=== PATIENT | female | born 1955 | race Caucasian/White ===

== ENCOUNTER 2023-06-22 12:56 | Outpatient (RCR) | payer MEDICARE, SELFPAY | END 2023-06-22 23:59 | disposition home or self-care (01) | LOC: RPT 12:56 | PROVIDERS: ATTENDING PHYSICIAN Internal Medicine Gastroenterology; PRIMARYCARE PHYSICIAN Family Medicine | DX: R15.9 Full incontinence of feces (principal); M62.89 Other specified disorders of muscle; N39.41 Urge incontinence; N39.3 Stress incontinence (female) (male); M62.81 Muscle weakness (generalized); R27.8 Other lack of coordination | CPT/HCPCS: 97014; 97110; 97112; 97140; 97530 ==

== ENCOUNTER 2023-07-13 07:52 | Outpatient (RCR) | payer MEDICARE, SELFPAY | END 2023-07-13 23:59 | disposition home or self-care (01) | LOC: RPT 07:52 | PROVIDERS: ATTENDING PHYSICIAN Internal Medicine Gastroenterology; PRIMARYCARE PHYSICIAN Family Medicine | DX: R15.9 Full incontinence of feces (principal); M62.89 Other specified disorders of muscle; N39.41 Urge incontinence; N39.3 Stress incontinence (female) (male); Z73.6 Limitation of activities due to disability; M62.81 Muscle weakness (generalized); R27.8 Other lack of coordination | CPT/HCPCS: 97014; 97112; 97140; 97530 ==

== ENCOUNTER → 2023-07-28 12:03 | Outpatient (REF) | payer MEDICARE, SELFPAY | LOC: WDC 12:03 | PROVIDERS: ATTENDING PHYSICIAN Family Medicine | DX: Z12.31 Encounter for screening mammogram for malignant neoplasm of breast (principal) | CPT/HCPCS: 77063; 77067 ==

== ENCOUNTER → 2023-08-13 07:47 | Outpatient (REF) | payer MEDICARE, SELFPAY | LOC: RAD 07:47 | PROVIDERS: ATTENDING PHYSICIAN Family Medicine | DX: M85.89 Other specified disorders of bone density and structure, multiple sites (principal) | CPT/HCPCS: 77080 ==

== ENCOUNTER 2023-08-25 10:00 | Outpatient (RCR) | payer MEDICARE, SELFPAY | END 2023-08-25 23:59 | disposition home or self-care (01) | LOC: RPT 10:00 | PROVIDERS: ATTENDING PHYSICIAN Internal Medicine Gastroenterology; PRIMARYCARE PHYSICIAN Family Medicine | DX: R15.9 Full incontinence of feces (principal); M62.89 Other specified disorders of muscle; N39.41 Urge incontinence; N39.3 Stress incontinence (female) (male); Z73.6 Limitation of activities due to disability; M62.81 Muscle weakness (generalized); R27.8 Other lack of coordination | CPT/HCPCS: 97014; 97112; 97530 ==

== ENCOUNTER 2023-09-15 09:57 | Outpatient (RCR) | payer MEDICARE, SELFPAY | END 2023-09-15 23:59 | disposition home or self-care (01) | LOC: RPT 09:57 | PROVIDERS: ATTENDING PHYSICIAN Internal Medicine Gastroenterology; PRIMARYCARE PHYSICIAN Family Medicine | DX: R15.9 Full incontinence of feces (principal); M62.89 Other specified disorders of muscle; N39.41 Urge incontinence; N39.3 Stress incontinence (female) (male); Z73.6 Limitation of activities due to disability; M62.81 Muscle weakness (generalized); R27.8 Other lack of coordination | CPT/HCPCS: 97112; 97530 ==

== ENCOUNTER 2023-09-23 17:38 | Inpatient (IN) | payer MEDICARE, SELFPAY ==
[2023-09-23 12:01] VITALS: BP 122/78
[2023-09-23 12:30] VITALS: BP 141/116
[2023-09-23 12:30] LABS: % Basophils 0.1 % (0-2); % Immature Granulocytes 0.4 % (0-0.5); % Lymphocytes 5.1 % (20.5-51.1); % Monocytes 9.5 % (1.7-9.3); % Neutrophils 84.9 % (42.2-75.2); Absolute Immature Granulocytes 0.1 10^3/uL (0-0.05); Absolute Lymphocytes 0.8 10^3/uL (1.2-3.4); Absolute Monocytes 1.5 10^3/uL (0.1-0.6); Hematocrit 38.7 % (37.0-47.0); Hemoglobin 13.2 g/dL (12.0-16.0); Mean Corp Hgb Conc. 34.1 g/dL (33.0-37.0); Mean Corpuscular Hgb 28.3 pg (27.0-31.0); Mean Platelet Volume 9.5 fL (7.4-10.4); Nucleated Red Blood Cells % 0 %; Platelet Count 260 10^3/uL (130-400); Red Blood Cell Count 4.66 10^6/uL (4.20-5.40); Red Cell Dist. Width 13.2 % (11.5-14.5); White Blood Cell Count 15.4 10^3/uL (4.8-10.8)
[2023-09-23 12:45] LABS: ALT (SGPT) 17 U/L (0-35); AST (SGOT) 25 U/L (14-36); Albumin 3.7 g/dl (3.5-5.0); Alkaline Phosphatase 89 U/L (38-126); Blood Urea Nitrogen 12 mg/dl (7-17); Calcium 9.8 mg/dl (8.4-10.2); Carbon Dioxide 21 mmol/L (22-30); Chloride 101 mmol/L (98-107); Glucose 139 mg/dl (70-99); Lipase 57 U/L (23-300); Potassium 3.5 mmol/L (3.5-5.1); Sodium 129 mmol/L (135-145); Total Bilirubin 0.8 mg/dl (0.2-1.3); Total Protein 6.4 g/dl (6.3-8.2); eGFR > 60.00
[2023-09-23 13:00] VITALS: BP 126/66
[2023-09-23] MEDS: TYLENOL 650 MG PO ×2 (13:01→20:16)
[2023-09-23 13:09] LABS: COVID-19 Antigen Negative (Negative)
[2023-09-23] MEDS: NSS 1000 IV ×2 (14:01→20:16)
[2023-09-23 14:30] LABS: Urine Albumin 2+ (Neg - Trace); Urine Bilirubin Negative (Negative); Urine Character Slightly Cloudy (Clear); Urine Color Yellow; Urine Glucose Negative (Negative); Urine Ketone 2+ (Negative); Urine Leukocyte 2+ (Negative); Urine Nitrite Negative (Negative); Urine Occult Blood 1+ (Negative); Urine Urobilinogen Negative (Neg - 1+)
[2023-09-23 14:43] LABS: Urine Bacteria Many (Negative)
[2023-09-23 14:44] LABS: Urine Red Blood Cell 0-2 /HPF (0-2); Urine White Cell 30-40 /HPF (0-5)
--- NOTE | 2023-09-23 15:37 | ED.GENMED ---
History of Present Illness
General
Chief Complaint: Fever
Source: patient
Exam Limitations: none
Time Seen by Provider: 09/23/23 12:16
Nursing documentation reviewed up to this point in time: agreed with
Travel History
Have you had any contact with someone who has COVID-19?: No
Do you have any symptoms of coronavirus? Fever > 100 degrees, chills, cough, shortness of breath, sore throat, loss of taste or smell, muscle aches, or headache?: No
History of Present Illness
History of Present Illness:
Six 7-year-old female presents to the emergency department complaining of fever chills nausea vomiting diarrhea.
Past History
Past History
ED Past Medical History: GERD
ED Past Surgical History: None
Social History
Tobacco: Former smoker
Alcohol: None
Review of Systems
Review of Systems
Allergies reviewed?: Yes
All Other Systems: Not applicable
Constitutional: Reports fever and chills
EENT: Reports no symptoms
Respiratory: Reports no symptoms
Cardiac: Reports no symptoms
ABD/GI: Reports no symptoms
: Reports difficulty voiding and dark urine
Musculoskeletal: Reports no symptoms
Skin: Reports no symptoms
Neurological: Reports no symptoms
Endocrine: Reports no symptoms
Hematologic/Lymphatic: Reports no symptoms
Psychiatric: Reports no symptoms
Phy Exam
Physical Exam
Physical Exam:
Physical Exam
General: Fever 100.5
Neck: supple. no meningeal signs. normal posterior pharynx
Heart: s1/s2 tachycardia, no murmur. equal radial
pulses.
HEENT: Pupils equal round reactive to light, EOMI
Lungs: no acute respiratory distress. clear bilaterally
Abdomen: normal bowel sounds. not tender. no CVAT
Neuro: alert and oriented. no focal neurological deficits cranial nerves II through XII intact
Skin: no rash
Psychiatric: well kept. interactive and cooperative
Extremities: no edema. no calf tenderness. negative homans. good distal pulses
Course
Orders/Labs/Results
Orders:
Orders
09/23/23 12:18
IV Insert/Care/Rem.- Treatment PRN
09/23/23 12:19
Complete Blood Count/With Diff Urgent
Comprehensive Metabolic Panel Urgent
Lipase Urgent
09/23/23 12:47
COVID-19 Antigen Urgent
Source: Nasal Swab
INF RAPID [Influenza A+B Rapid Molecular] Urgent
FANY Source: Nasal Swab
Specimen Description:
Acetaminophen [Tylenol] 650 mg PO NOW STA
09/23/23 13:53
0.9% Sodium Chloride 1000 ml [Nss] 1,000 ml IV BOLUS
09/23/23 14:17
Urinalysis Reflex To Culture Urgent
Date Specimen was Collected: 09/23/23
Time Specimen was Collected: 12:18
Urine Microscopic Reflex Cult Urgent
Urine Culture Urgent
FANY Source: U
Specimen Description:
Date Specimen was Collected: 09/23/23
Time Specimen was Collected: 12:18
09/23/23 15:35
Aztreonam [Azactam] 2,000 mg IV NOW STA
Abnormal Lab Results
09/23/23 09/23/23
12:19 14:17
WBC 15.4 H 10^3/uL
(4.8-10.8)
Abs Immat Gran (auto) 0.1 H 10^3/uL
(0-0.05)
Absolute Neuts (auto) 13.0 H 10^3/uL
(1.4-6.5)
Absolute Lymphs (auto) 0.8 L 10^3/uL
(1.2-3.4)
Absolute Monos (auto) 1.5 H 10^3/uL
(0.1-0.6)
Neutrophils % 84.9 H %
(42.2-75.2)
Lymphocytes % 5.1 L %
(20.5-51.1)
Monocytes % 9.5 H %
(1.7-9.3)
Sodium 129 L mmol/L
(135-145)
Carbon Dioxide 21 L mmol/L
(22-30)
Glucose 139 H mg/dl
(70-99)
Urine Ketones 2+ A
(Negative)
Ur Occult Blood Reflex 1+ A
(Negative)
Leukocyte Esterase Rfl 2+ A
(Negative)
Urine WBC (Reflex) 30-40 A /HPF
(0-5)
Urine Bacteria (Reflex) Many A
(Negative)
Urine Albumin (Reflex) 2+ A
(Neg - Trace)
09/23/23 12:19
09/23/23 12:19
Vital Signs
Initial and Last Documented VS:
Initial Vital Signs
Temp Pulse Resp BP Pulse Ox
100.5 F H 110 18 122/78 98
09/23/23 12:01 09/23/23 12:01 09/23/23 12:01 09/23/23 12:01 09/23/23 12:01
Last Documented Vital Signs
Temp Pulse Resp BP Pulse Ox
100.5 F H 91 32 126/66 91
09/23/23 12:01 09/23/23 13:45 09/23/23 13:45 09/23/23 13:00 09/23/23 13:45
MDM/Problems Addressed
Differential Diagnosis Includes:
sepsis, UTI
MDM/Problems Addressed:
67-year-old female with UTI, fever, hyponatremia. Penicillin allergy.
Chronic conditions affecting care: HTN
Acute Exacerbation and/or Progression of Chronic Illness: HTN
*Pulse Oximetry
Patient hypoxic: no
*EKG
Interpreted by ED Provider?: NA
*Content Development Manager Interpretation
Rate: Content Development Manager- N/A
*Critical Care Note
Total Time (30-74mins, 75-104mins- exclusive of procedures): Not Applicable
Patient Management
Social determinants of health affecting care: Living situation
Discussion with other providers: Hospitalist
Escalation/DeEscalation of care consider admission/obs:
admit indicated
ED Attending Note
-
Portions of this chart may have been created with voice recognition software.� Occasional wrong word or��sound alike� substitutions may have occurred due to the inherent limitations of voice recognition software.
Discharge Plan
Departure
Patient Disposition: Admit
Date of Disposition: 09/23/23
Time of Disposition: 15:34
Admit to: Telemetry
Presentation/result/management discussed w/ accepting MD/DO: Hospitalist
Patient with high blood pressure during this ER visit?: Yes
Condition: Fair
Discharge Problem:
UTI (urinary tract infection), Fever
Prescriptions:
No Action
doxycycline hyclate 100 MG capsule
100 mg PO Q12 Qty: 14 0RF
prednisone 50 MG tablet
50 mg PO DAILY Qty: 5 0RF
Referrals:
Roscoe Veloz MD [Family Provider] -
Interventions
Interventions:
*Risk Screen - Suicide Last Done: 09/23/23 12:01
*General Assessment Last Done: 09/23/23 12:01
*Neglect/Abuse Screening Last Done: 09/23/23 12:01
*ED COVID-19 Vaccine History Last Done: 09/23/23 12:01
ED- Neurological Assessment Last Done: 09/23/23 12:40
ED-Skin Assessment Last Done: 09/23/23 12:40
Discharge Date and Time
Print Language: ARGENTINE
[2023-09-23] MEDS: AZACTAM 2000 MG IV (16:13)
--- NOTE | 2023-09-23 17:07 | HPS.HSE ---
Family Physician
-
Family Physician: Roscoe Veloz
Chief Complaint
-
fever, vomiting, diarrhea
History of Present Illness
67-year-old female past medical history of hypertension, GERD, Gill's esophagus, questionable celiac disease, hyperlipidemia presenting with fevers and chills for the past 4 days. He has been having daily vomiting and watery diarrhea episodes.
No blood in the stool. Decreased p.o. intake. No abdominal pain, urinary frequency or burning. No cough or sore throat or runny nose. No sick contacts.
She drinks a glass of wine every night. Denies smoking.
Medical History
Past Medical History
Past Medical History: Reports Other (hypertension, GERD, Gill's esophagus, questionable celiac disease, hyperlipidemia )
Past Surgical History: Reports None
Social History
Tobacco: Non-smoker
Alcohol: Daily
Drug: None
Family History
Family History: Not pertinent
Allergies / Home Medications
Allergies reflects when Allergies were last updated in [facility].
Home Medications with original date entered in [facility]
Allergy/Medication List:
Allergies
Allergy/AdvReac Type Severity Reaction Status Date / Time
aspirin Allergy Hives Verified 09/23/23 12:03
[From Aspirin Regimen
Dash/Calcium]
calcium carbonate Allergy Hives Verified 09/23/23 12:03
[From Aspirin Regimen
Dash/Calcium]
Penicillins Allergy Hives Verified 09/23/23 12:03
Sulfa (Sulfonamide Allergy Hives Verified 09/23/23 12:03
Antibiotics)
[Sulfa(Sulfonamide
Antibiotics)]
Home Medications
cholecalciferol (vitamin D3) 25 mcg (1,000 unit) tablet (Vitamin D3) 25 mcg PO DAILY 09/23/23
lisinopril 10 mg tablet 10 mg PO DAILY 09/23/23
loratadine 10 mg tablet (Claritin) 10 mg PO DAILY 09/23/23
omeprazole 40 mg capsule,delayed release 40 mg PO DAILY 09/23/23
vitamin E 268 mg (400 unit) capsule 268 mg PO DAILY 09/23/23
Review of Systems
-
History Source: Patient
A 12 point ROS was completed and negative except as noted: Yes
Constitutional: Reports No Symptoms
EENT: Reports No Symptoms
Respiratory: Reports No Symptoms
Cardiac: Reports No Symptoms
Abdomen/GI: Reports See HPI
: Reports No Symptoms
Musculoskeletal: Reports No Symptoms
Skin: Reports No Symptoms
Neurological: Reports No Symptoms
Endocrine: Reports No Symptoms
Hematologic/Lymphatic: Reports No Symptoms
Psych: Reports No Symptoms
Physical Exam
Vital Signs
Vital Signs
Temp Pulse Resp BP Pulse Ox
100.5 F H 91 32 126/66 91
09/23/23 12:01 09/23/23 13:45 09/23/23 13:45 09/23/23 13:00 09/23/23 13:45
Physical Exam
General: Well Developed, Well Nourished and No Apparent Distress
HEENT: NormoCephalic, Moist mucous membranes and Atraumatic
Respiratory: Clear
Cardiac: S1/S2 and Regular Rhythm; No Murmur or Rub
GI: Soft, Non Tender, Non Distended and Normal Bowel Sounds; No Organomegaly
Rectal: Deferred by Provider
Musculoskeletal: No Clubbing, No Cyanosis and No Edema
Skin: No Rash
Neuro: Nonfocal/grossly intact
Laboratory Results
-
09/23/23 12:19
09/23/23 12:19
Laboratory Results
Total Bilirubin 0.8 mg/dl (0.2-1.3) 09/23/23 12:19
AST 25 U/L (14-36) 09/23/23 12:19
ALT 17 U/L (0-35) 09/23/23 12:19
Alkaline Phosphatase 89 U/L (38-126) 09/23/23 12:19
Lipase 57 U/L (23-300) 09/23/23 12:19
Data Reviewed
-
Lab Data: Labs Reviewed by me
Old Records: Reviewed
Impression/Plan
-
IMPRESSION:
PLAN:
# Sepsis (fever, leukocytosis, tachycardia, tachypnea) secondary to gastroenteritis/colitis/possible UTI
-Urinalysis shows 30-40 WBC, slightly cloudy urine, negative nitrates, +2 leukocyte esterase
-N.p.o.
-IV fluids
-Check urine culture/blood cultures
-Check stool culture, norovirus, C. difficile
-As needed Imodium after checking stool
-Aztreonam given, continue Levaquin/Flagyl
GERD
-Continue omeprazole
Gill's esophagus
Questionable celiac disease
Hyperlipidemia
Essential hypertension
-Continue lisinopril
Full code
DVT prophylaxis heparin
N.p.o.
[2023-09-23 18:36] VITALS: BP 146/79
--- NOTE | 2023-09-23 19:50 | PTCARENOTE ---
received pt from ED approx 1835 to 3W room 335. Assessment complete, pt oriented to room, call schneider within reach, pt febrile at 102.5. Flushed face and upper chest. Resting comfortably, no complaints at this time.
[2023-09-23 20:11] VITALS: BMI 26.9
[2023-09-23] MEDS: HEPARIN 5000 UNITS SC (20:16)
[2023-09-23] MEDS: FLAGYL 500 MG 100 IV (20:16)
[2023-09-23] MEDS: FLUSH (NSS) 2 FLUSH IV (20:18)
[2023-09-23] MEDS: LEVAQUIN 150 IV (22:03)
[2023-09-23 23:46] VITALS: BP 110/63
[2023-09-24] MEDS: FLAGYL 500 MG 100 IV ×2 (03:41→12:35)
[2023-09-24] MEDS: TYLENOL 650 MG PO ×3 (03:42→21:00)
[2023-09-24] MEDS: NSS 1000 IV ×3 (05:14→21:26)
[2023-09-24 05:49] LABS: % Basophils 0.1 % (0-2); % Immature Granulocytes 0.6 % (0-0.5); % Lymphocytes 3.8 % (20.5-51.1); % Monocytes 10.9 % (1.7-9.3); % Neutrophils 84.6 % (42.2-75.2); Absolute Immature Granulocytes 0.1 10^3/uL (0-0.05); Absolute Lymphocytes 0.5 10^3/uL (1.2-3.4); Absolute Monocytes 1.4 10^3/uL (0.1-0.6); Absolute Neutrophils 10.6 10^3/uL (1.4-6.5); Hemoglobin 11.1 g/dL (12.0-16.0); Mean Corp Hgb Conc. 33.6 g/dL (33.0-37.0); Mean Corpuscular Hgb 28.1 pg (27.0-31.0); Mean Corpuscular Volume 83.5 fL (81.0-99.0); Mean Platelet Volume 9.7 fL (7.4-10.4); Nucleated Red Blood Cells % 0 %; Platelet Count 194 10^3/uL (130-400); Red Blood Cell Count 3.95 10^6/uL (4.20-5.40); Red Cell Dist. Width 13.2 % (11.5-14.5); White Blood Cell Count 12.5 10^3/uL (4.8-10.8)
[2023-09-24 06:14] LABS: ALT (SGPT) 16 U/L (0-35); AST (SGOT) 26 U/L (14-36); Albumin 2.7 g/dl (3.5-5.0); Alkaline Phosphatase 72 U/L (38-126); Blood Urea Nitrogen 12 mg/dl (7-17); Calcium 8.9 mg/dl (8.4-10.2); Carbon Dioxide 19 mmol/L (22-30); Chloride 107 mmol/L (98-107); Estimated Creatinine Clearance 62 ml/min; Glucose 111 mg/dl (70-99); Potassium 3.3 mmol/L (3.5-5.1); Sodium 132 mmol/L (135-145); Total Bilirubin 0.6 mg/dl (0.2-1.3); Total Protein 5.2 g/dl (6.3-8.2); eGFR > 60.00
[2023-09-24 07:11] VITALS: BP 114/67
[2023-09-24] MEDS: VITAMIN D3 (cholecalciferol) 25 MCG PO (08:27)
[2023-09-24] MEDS: PROTONIX 40 MG PO (08:27)
[2023-09-24] MEDS: ZESTRIL 10 MG PO (08:27)
[2023-09-24] MEDS: CLARITIN 10 MG PO (08:27)
[2023-09-24] MEDS: VITAMIN E 400 UNITS PO (08:27)
[2023-09-24] MEDS: HEPARIN 5000 UNITS SC ×2 (08:28→21:01)
--- NOTE | 2023-09-24 08:53 | W.PN.HOSP.TC ---
Today's Communication/Plan
-
IV antibiotics. Follow-up cultures. ID consult
Assessment / Plan
Assessment / Plan
Physical exam:
General: Well Developed, Well Nourished and No Apparent Distress
HEENT: Normocephalic, Atraumatic and Moist Mucous Membranes
Respiratory: Clear to Auscultation; Negative Wheezes, Rales or Rhonchi
Cardiac: Regular Rhythm and S1/S2
GI: Soft, Nontender and Nondistended
Musculoskeletal: No Clubbing, No Cyanosis and No Edema
Neuro: Awake, Alert and Oriented
Psych: Calm
A/P:
# Sepsis (fever, leukocytosis, tachycardia, tachypnea) secondary to likely UTI with bacteremia:
-Urinalysis shows 30-40 WBC, slightly cloudy urine, negative nitrates, +2 leukocyte esterase
-Continue IV antibiotics Levaquin but stop Flagyl
-ID consult
-Blood cultures positive, waiting for identification. Repeat cultures today.
-WBC 15.4-->12.5
GERD
-Continue omeprazole
Gill's esophagus
Questionable celiac disease
Hyperlipidemia
Essential hypertension
-Continue lisinopril
Full code
DVT prophylaxis heparin
Total time spent on today's encounter was 52 minutes which included time spent in counseling the patient/family regarding diagnosis and treatment plan as listed above, goals of care, and symptom management. Case was discussed with nursing staff,
specialists, and care coordinators/case management. All labs and imaging personally reviewed by me. Remainder the time spent in detailed review of previous records, lab data, imaging, and other medical provider documentation.
Anticipated Discharge: 24 - 48 hours
Subjective/Interval History
-
Date of Service: September 24, 2023
Patient still complaining of chills. She had some diarrhea but this is somewhat chronic for her.
Objective Data
-
Labs:
Laboratory Results
09/24/23
05:23
WBC 12.5 H
Hgb 11.1 L
Hct 33.0 L
Plt Count 194 D
Sodium 132 L
Potassium 3.3 L
Chloride 107
Carbon Dioxide 19 L
BUN 12
Creatinine 0.8
Glucose 111 H
Calcium 8.9
Total Bilirubin 0.6
AST 26
ALT 16
Alkaline Phosphatase 72
Vital Signs:
Vital Signs
Temp Pulse Resp BP Pulse Ox
98.5 F 80 17 114/67 95
09/24/23 07:11 09/24/23 08:27 09/24/23 07:11 09/24/23 08:27 09/24/23 07:11
I&O
09/23/23 09/24/23 09/25/23
06:59 06:59 06:59
Intake Total 2069
Balance 2069
Review of Systems
-
All other systems: Reviewed and negative
[2023-09-24] MEDS: KCL 40 MEQ PO ×2 (10:21→14:44)
--- NOTE | 2023-09-24 14:38 | CM ---
Addendum entered by Deepali Akhtar 09/24/23 14:47:
IMM explained and signed @ 1435
Original Note:
Met with patient at the bedside; initial assessment completed
IMM explained and signed
Pharmacy verified: [facility] ([facility]); [address] [place] [address]
Patient reported that she lives in a multi-level home with her ; 2 steps to enter; 10 steps between floors; powder room on the 1st floor; 2nd floor bathroom has tub with shower
PLOF: patient reported that prior to present illness, she was independent with ADLs, Ambulation and Stairs; drives. Reported she is feeling weak. PT evaluated; no skilled PT needed
DME: tub grab bar, shower chair
SNF/Rehab/Home Health utilization history: none
Transport: will provide transport home
Plan: discharge to home with assistance from if needed
[2023-09-24 15:02] VITALS: BP 131/73
--- NOTE | 2023-09-24 16:10 | CON.ID ---
Consultation
-
Date/Time Consultation Requested: 09/24/2023 1254
Date/Time Consultation Performed: 09/24/2023 1545
Requesting Provider: Dr. Rios
Performing Provider: Dr. Nobles
Reason for Consultation: Bacteremia
Chief Complaint / Past History
History of Present Illness
Zandra Enrique is a 67-year-old female being evaluated at the request of Dr. Rios in regards to bacteremia. History is obtained from chart review, along with patient interview.
Patient has a significant past medical history of GERD and hypertension presents to the hospital on 09/22 following the development of fevers and chills over the prior 4 days, along with several episodes of nausea, vomiting and diarrhea.
The patient reports that she has been feeling weak and exhausted at least for several weeks. Earlier in the week she reports she went for a walk with her sister and was extremely fatigued thereafter. Over the past week she has felt increasingly
tired. She called her PCP yesterday and he advised coming to the emergency room for further evaluation. She notes ongoing nausea over the past week and overall decreased appetite over the same time. She also admits to fevers and chills over the
past week. She admits to occasional cough but little sputum production.
She denies any significant dysuria or hematuria.
She reports recent travel in early October 2 [place], [place] and [place], where she did some desert hiking with her .
There are no other sick contacts. She has a dog as a pet.
Past History
Additional Past Medical History:
Gill's esophagus
GERD
HTN
Additional Past Surgical History:
Right ankle surgery
Allergy History:
aspirin [From Aspirin Regimen Dash/Calcium] Allergy (Verified 09/23/23 12:03)
Hives
calcium carbonate [From Aspirin Regimen Dash/Calcium] Allergy (Verified 09/23/23 12:03)
Hives
eggplant Allergy (Verified 09/23/23 18:41)
Hives
Penicillins Allergy (Verified 09/23/23 12:03)
Hives (Pt reports transient 'rash on dorsum of hands' after PCN. No body rash.
Sulfa (Sulfonamide Antibiotics) [Sulfa(Sulfonamide Antibiotics)] Allergy (Verified 09/23/23 12:03)
Hives
Medications Reviewed: Yes
Current Antibiotics:
Levaquin 703 mg IV every 24 hours
Social History
Tobacco: Non-Smoker
Alcohol: Daily (wine)
Drug: None
Personal:
Living: With Family
Employment: Retired
Family History
Family History: Not Pertinent
Review of Systems
Vital Signs
Temp Pulse Resp BP Pulse Ox
99.8 F 100 16 131/73 98
09/24/23 10:56 09/24/23 15:02 09/24/23 15:02 09/24/23 15:02 09/24/23 15:02
Physical Exam
Physical Exam
Constitutional: No Acute Distress, Well Developed, Comfortable and Non-toxic
Head: Normocephalic
Eyes: Pupils Equal, Pupils Round, No Conjunctival Hemorrhage and Sclera Anicteric
Oral: No Thrush and No Ulcers
Cardiovascular: S1/S2; Negative S3/S4 or Murmur
Pulmonary: Clear; Negative Wheezes, Rales or Rhonchi
Gastrointestinal: Soft, Non Tender, Non Distended, Normal Bowel Sounds, No Rebound and No Guarding
Extremities: Negative Edema, Cyanosis or Erythema
Skin: Warm and Dry; Negative Rash or Jaundice
Neurological: Awake and Alert
Lab / Diagnostic Study Results
09/24/23 05:23
09/24/23 05:23
Abs Immat Gran (auto) 0.1 10^3/uL (0-0.05) H 09/24/23 05:23
Absolute Neuts (auto) 10.6 10^3/uL (1.4-6.5) H 09/24/23 05:23
Absolute Lymphs (auto) 0.5 10^3/uL (1.2-3.4) L 09/24/23 05:23
Absolute Monos (auto) 1.4 10^3/uL (0.1-0.6) H 09/24/23 05:23
Absolute Basos (auto) 0.0 10^3/uL (0-0.2) 09/24/23 05:23
Immature Gran % 0.6 % (0-0.5) H 09/24/23 05:23
Neutrophils % 84.6 % (42.2-75.2) H 09/24/23 05:23
Lymphocytes % 3.8 % (20.5-51.1) L 09/24/23 05:23
Monocytes % 10.9 % (1.7-9.3) H 09/24/23 05:23
Eosinophils % 0.0 % (0-6) 09/24/23 05:23
Basophils % 0.1 % (0-2) 09/24/23 05:23
Ur Squamous Epith Cells 6-10 /LPF (Few) 09/23/23 14:17
Microbiology Results
Micro:
09/24/23 15:52 Blood Culture - Pending
Blood/Venous
09/24/23 11:23 C. difficile GDH Antigen & Toxins - Final
Feces/Stool Negative for toxigenic C.difficile
- Final
Negative for Norovirus GI and GII.
09/23/23 16:06 Blood Culture - Preliminary
Blood/Venous Positive culture in progress
Gram Stain - Final
09/23/23 14:17 Urine Culture - Final
Urine Lactobacillus species
09/24/23 11:23 Salmonella/Shigella Culture - Pending
Feces/Stool Campylobacter Culture - Pending
Shiga Toxin Test - Pending
09/23/23 16:06 Blood Culture - Pending
Blood/Venous
09/23/23 12:47 Influenza Types A & B (LYNDSAY) - Final
Nasal Swab Negative for Influenza A & B, NAAT
Negative results must be combined with clinical observations
and patient history.
Nucleic Acid Amplification test (NAAT)performed on the
[employer] platform.
Assessment / Plan
Fever / chills
Nausea / vomiting / Diarrhea
Leukocytosis
(+) BC's with GPC (1 of 4 bottles from admit)
Suspected UTI
PCN / Sulfa allergy
Gill's esophagus
GERD
HTN
Recommendations:
Given improvement in white count, continue with empiric Levaquin, although can transition to enteric route
Repeat blood cultures have been obtained.
Await further identification of currently positive blood cultures.
Follow WBC / temps.
[2023-09-24] MEDS: LEVAQUIN 750 MG PO (21:02)
[2023-09-24 23:25] VITALS: BP 108/61
[2023-09-25] MEDS: TORADOL 15 MG IV
[2023-09-25 07:00] VITALS: BP 142/84
[2023-09-25] MEDS: PROTONIX 40 MG PO (08:03)
[2023-09-25] MEDS: VITAMIN D3 (cholecalciferol) 25 MCG PO (08:03)
[2023-09-25] MEDS: VITAMIN E 400 UNITS PO (08:03)
[2023-09-25] MEDS: HEPARIN 5000 UNITS SC ×2 (08:04→21:18)
[2023-09-25] MEDS: CLARITIN 10 MG PO (08:04)
[2023-09-25] MEDS: ZESTRIL 10 MG PO (08:04)
--- NOTE | 2023-09-25 08:08 | W.PN.HOSP.TC ---
Today's Communication/Plan
-
Continue antibiotics.
Assessment / Plan
Assessment / Plan
Physical exam:
General: Well Developed, Well Nourished and No Apparent Distress
HEENT: Normocephalic, Atraumatic and Moist Mucous Membranes
Respiratory: Clear to Auscultation; Negative Wheezes, Rales or Rhonchi
Cardiac: Regular Rhythm and S1/S2
GI: Soft, Nontender and Nondistended
Musculoskeletal: No Clubbing, No Cyanosis and No Edema
Neuro: Awake, Alert and Oriented
Psych: Calm
A/P:
# Sepsis (fever, leukocytosis, tachycardia, tachypnea) secondary to likely UTI:
-Urinalysis shows 30-40 WBC, slightly cloudy urine, negative nitrates, +2 leukocyte esterase
-Continue IV antibiotics Levaquin--> decrease doses by ID today
-ID consult and follow-up appreciated
-Blood cultures positive but likely contaminant, waiting for identification. Repeat cultures yesterday pending but no growth so far.
-WBC 15.4-->12.5-->10.4
-Possible discharge tomorrow if cultures negative and ID okay
GERD
-Continue omeprazole
Gill's esophagus
Questionable celiac disease
Hyperlipidemia
Essential hypertension
-Continue lisinopril
Full code
DVT prophylaxis heparin
Anticipated Discharge: Within 24 hours
Subjective/Interval History
-
Date of Service: September 25, 2023
Patient overall feels better today. Patient had vomiting last evening and she thinks that she did not took advantage of her antibiotic pill due to the event. Afebrile
Objective Data
-
Labs:
Laboratory Results
09/25/23
07:55
WBC Pending
Hgb Pending
Hct Pending
Plt Count Pending
Sodium Pending
Potassium Pending
Chloride Pending
Carbon Dioxide Pending
BUN Pending
Creatinine Pending
Glucose Pending
Calcium Pending
Vital Signs:
Vital Signs
Temp Pulse Resp BP Pulse Ox
98.6 F 90 18 146/88 93
09/25/23 03:30 09/24/23 23:25 09/24/23 23:25 09/25/23 08:04 09/24/23 23:25
I&O
09/24/23 09/25/23 09/26/23
06:59 06:59 06:59
Intake Total 2069
Balance 2069
Review of Systems
-
All other systems: Reviewed and negative
[2023-09-25] MEDS: TYLENOL 650 MG PO ×3 (08:11→23:03)
[2023-09-25] MEDS: ZOFRAN 4 MG IV (08:11)
[2023-09-25 08:15] LABS: % Basophils 0.1 % (0-2); % Immature Granulocytes 0.5 % (0-0.5); % Lymphocytes 5.3 % (20.5-51.1); % Monocytes 9.4 % (1.7-9.3); % Neutrophils 84.7 % (42.2-75.2); Absolute Immature Granulocytes 0.1 10^3/uL (0-0.05); Absolute Lymphocytes 0.6 10^3/uL (1.2-3.4); Absolute Neutrophils 8.8 10^3/uL (1.4-6.5); Hematocrit 32.4 % (37.0-47.0); Hemoglobin 10.9 g/dL (12.0-16.0); Mean Corp Hgb Conc. 33.6 g/dL (33.0-37.0); Mean Corpuscular Hgb 28.1 pg (27.0-31.0); Mean Corpuscular Volume 83.5 fL (81.0-99.0); Mean Platelet Volume 9.8 fL (7.4-10.4); Nucleated Red Blood Cells % 0 %; Platelet Count 204 10^3/uL (130-400); Red Blood Cell Count 3.88 10^6/uL (4.20-5.40); Red Cell Dist. Width 13.7 % (11.5-14.5); White Blood Cell Count 10.4 10^3/uL (4.8-10.8)
[2023-09-25 09:00] LABS: Blood Urea Nitrogen 9 mg/dl (7-17); Calcium 9.3 mg/dl (8.4-10.2); Carbon Dioxide 20 mmol/L (22-30); Chloride 111 mmol/L (98-107); Estimated Creatinine Clearance 83 ml/min; Glucose 131 mg/dl (70-99); Potassium 3.9 mmol/L (3.5-5.1); Sodium 133 mmol/L (135-145); eGFR > 60.00
--- NOTE | 2023-09-25 10:38 | W.PN.ID1 ---
Date of Service
Date of Service: September 25, 2023
Today's Communication
Continue antibiotics. See below�
Assessment / Plan
Fever / chills
Nausea / vomiting / Diarrhea
Leukocytosis
(+) BC's with GPC (1 of 4 bottles from admit)
- suspect contaminat
Suspected UTI
PCN / Sulfa allergy
Gill's esophagus
GERD
HTN
Recommendations:
Following repeat blood cultures.
Await further identification of currently positive blood cultures.
Follow WBC / temps.
Patient reports that she vomited last evening following administration of Levaquin (within approximately 15 minutes of taking medication). Patient reports she saw a pill fragments in the vomitus.
Not clear if any was absorbed.
Will will change to 500 mg dosed now.
Chief Complaint
-: Fever and Leukocytosis
Subjective / Review of Systems
Review of Systems: No Fever and Nausea (with vomiting)
Vital Signs / Physical Exam
Vital Signs
Vital Signs
Temp Pulse Resp BP Pulse Ox
98.6 F 90 17 146/88 98
09/25/23 03:30 09/25/23 07:00 09/25/23 07:00 09/25/23 08:04 09/25/23 07:00
Physical Exam
Constitutional: Comfortable and Non-toxic
Eyes: Sclera Anicteric
Cardiovascular: S1/S2; Negative S3/S4
Pulmonary: Non Labored
Gastrointestinal: Soft and Non Distended
Neurological: Awake and Alert
Psychological: Calm
Objective Data
Lab Data
Lab Results
09/25/23 07:55
09/25/23 07:55
Estimated Creat Clear 83 ml/min 09/25/23 07:55
Total Bilirubin 0.6 mg/dl (0.2-1.3) 09/24/23 05:23
AST 26 U/L (14-36) 09/24/23 05:23
ALT 16 U/L (0-35) 09/24/23 05:23
Alkaline Phosphatase 72 U/L (38-126) 09/24/23 05:23
Most recent labs reviewed.
Micro Results:
09/24/23 11:23 Salmonella/Shigella Culture - Preliminary
Feces/Stool Culture in Progress
Campylobacter Culture - Preliminary
Culture in Progress
Shiga Toxin Test - Pending
09/23/23 16:06 Blood Culture - Preliminary
Blood/Venous No Growth in 24 hours- Final report to follow
09/24/23 15:52 Blood Culture - Pending
Blood/Venous
09/24/23 11:23 C. difficile GDH Antigen & Toxins - Final
Feces/Stool Negative for toxigenic C.difficile
- Final
Negative for Norovirus GI and GII.
09/23/23 16:06 Blood Culture - Preliminary
Blood/Venous Positive culture in progress
Gram Stain - Final
09/23/23 14:17 Urine Culture - Final
Urine Lactobacillus species
09/23/23 12:47 Influenza Types A & B (LYNDSAY) - Final
Nasal Swab Negative for Influenza A & B, NAAT
Negative results must be combined with clinical observations
and patient history.
Nucleic Acid Amplification test (NAAT)performed on the
[facility] platform.
[2023-09-25] MEDS: LEVAQUIN 500 MG PO (12:39)
[2023-09-25] MEDS: NSS 1000 IV (12:40)
[2023-09-25 23:05] VITALS: BP 144/80
[2023-09-26] MEDS: TORADOL 15 MG IV (00:34)
[2023-09-26 07:00] VITALS: BP 135/66
--- NOTE | 2023-09-26 08:24 | W.PN.HOSP.TC ---
Today's Communication/Plan
-
Continue antibiotics. Repeat blood cultures today. ID reeval.
Assessment / Plan
Assessment / Plan
Physical exam:
General: Acutely ill. Remains nontoxic appearance.
HEENT: Normocephalic, Atraumatic and Moist Mucous Membranes
Respiratory: Clear to Auscultation; Negative Wheezes, Rales or Rhonchi
Cardiac: Regular Rhythm and S1/S2
GI: Soft, Nontender and Nondistended
Musculoskeletal: No rash. No Clubbing, No Cyanosis and No Edema
Neuro: Awake, Alert and Oriented
Psych: Calm
A/P:
# Sepsis (fever, leukocytosis, tachycardia, tachypnea) initially suspected due to UTI but currently not so sure so I need to do further investigation if continues to have fever:
-Urinalysis shows 30-40 WBC, slightly cloudy urine, negative nitrates, +2 leukocyte esterase
-Continue IV antibiotics Levaquin--> decrease doses by ID yesterday
-Discussed with ID today on 09/25 and told him about the recurrence of fevers so he will look into that.
-Repeated blood cultures today on 09/25
-ID consult appreciated
-Blood cultures positive 09/22 but likely contaminant, waiting for identification. Repeat cultures 09/23 pending but no growth so far. Repeated cultures again today on 09/25
-WBC 15.4-->12.5-->10.4-->10.5
-Not ready for discharge yet since she still having fever.
GERD
-Continue omeprazole
Gill's esophagus
Questionable celiac disease
Hyperlipidemia
Essential hypertension
-Continue lisinopril
Full code
DVT prophylaxis heparin
Total time spent on today's encounter was 52 minutes which included time spent in counseling the patient/family regarding diagnosis and treatment plan as listed above, goals of care, and symptom management. Case was discussed with nursing staff,
specialists, and care coordinators/case management. All labs and imaging personally reviewed by me. Remainder the time spent in detailed review of previous records, lab data, imaging, and other medical provider documentation.
Anticipated Discharge: 24 - 48 hours
Subjective/Interval History
-
Date of Service: September 26, 2023
Patient continues to have fevers and early this morning Tmax was 103 Fahrenheit. She was still having some loose stools. Denies dysuria cough or rash. Denies chest pain or shortness of breath.
Objective Data
-
Vital Signs:
Vital Signs
Temp Pulse Resp BP Pulse Ox
98.5 F 103 18 144/80 95
09/26/23 02:11 09/25/23 23:05 09/25/23 23:05 09/25/23 23:05 09/25/23 23:05
I&O
09/25/23 09/26/23 09/27/23
06:59 06:59 06:59
Intake Total 1939 980 / 980
Balance 1939 980 / 980
Review of Systems
-
All other systems: Reviewed and negative
[2023-09-26 08:52] LABS: % Basophils 0.1 % (0-2); % Immature Granulocytes 0.8 % (0-0.5); % Lymphocytes 10.9 % (20.5-51.1); % Monocytes 6.3 % (1.7-9.3); % Neutrophils 81.9 % (42.2-75.2); Absolute Immature Granulocytes 0.1 10^3/uL (0-0.05); Absolute Lymphocytes 1.2 10^3/uL (1.2-3.4); Absolute Monocytes 0.7 10^3/uL (0.1-0.6); Absolute Neutrophils 8.6 10^3/uL (1.4-6.5); Hematocrit 35.8 % (37.0-47.0); Hemoglobin 12.3 g/dL (12.0-16.0); Mean Corp Hgb Conc. 34.4 g/dL (33.0-37.0); Mean Corpuscular Hgb 28.2 pg (27.0-31.0); Mean Corpuscular Volume 82.1 fL (81.0-99.0); Mean Platelet Volume 9.7 fL (7.4-10.4); Nucleated Red Blood Cells % 0 %; Platelet Count 278 10^3/uL (130-400); Red Blood Cell Count 4.36 10^6/uL (4.20-5.40); Red Cell Dist. Width 13.9 % (11.5-14.5); White Blood Cell Count 10.5 10^3/uL (4.8-10.8)
[2023-09-26 09:16] LABS: Blood Urea Nitrogen 11 mg/dl (7-17); Calcium 9.8 mg/dl (8.4-10.2); Carbon Dioxide 22 mmol/L (22-30); Chloride 110 mmol/L (98-107); Estimated Creatinine Clearance 71 ml/min; Glucose 105 mg/dl (70-99); Sodium 136 mmol/L (135-145); eGFR > 60.00
[2023-09-26 09:23] LABS: Potassium 3.9 mmol/L (3.5-5.1)
[2023-09-26 10:05] LABS: ALT (SGPT) 24 U/L (0-35); AST (SGOT) 24 U/L (14-36); Albumin 2.9 g/dl (3.5-5.0); Alkaline Phosphatase 86 U/L (38-126); Total Bilirubin 0.4 mg/dl (0.2-1.3); Total Protein 5.6 g/dl (6.3-8.2)
[2023-09-26] MEDS: PROTONIX 40 MG PO (10:21)
[2023-09-26] MEDS: LEVAQUIN 500 MG PO (10:21)
[2023-09-26] MEDS: ZESTRIL 10 MG PO (10:21)
[2023-09-26] MEDS: CLARITIN 10 MG PO (10:21)
[2023-09-26] MEDS: VITAMIN D3 (cholecalciferol) 25 MCG PO (10:21)
[2023-09-26] MEDS: VITAMIN E 400 UNITS PO (10:21)
[2023-09-26] MEDS: HEPARIN 5000 UNITS SC ×2 (10:22→20:18)
[2023-09-26 11:07] LABS: ALT (SGPT) 23 U/L (0-35); AST (SGOT) 27 U/L (14-36); Albumin 2.7 g/dl (3.5-5.0); Alkaline Phosphatase 82 U/L (38-126); Lipase 69 U/L (23-300); Total Bilirubin 0.3 mg/dl (0.2-1.3); Total Protein 5.2 g/dl (6.3-8.2)
[2023-09-26 12:02] LABS: Lipase 80 U/L (23-300)
[2023-09-26 12:43] LABS: Erythrocyte Sed Rate 54 mm/hour (0-20)
[2023-09-26 15:00] VITALS: BP 150/93
[2023-09-26 16:20] VITALS: BP 150/93
[2023-09-26] MEDS: TYLENOL 650 MG PO (17:41)
[2023-09-26 23:44] VITALS: BP 149/86
[2023-09-27 07:00] VITALS: BP 149/91
[2023-09-27 07:05] LABS: % Basophils 0.1 % (0-2); % Immature Granulocytes 0.8 % (0-0.5); % Lymphocytes 14.3 % (20.5-51.1); % Monocytes 8.8 % (1.7-9.3); Absolute Immature Granulocytes 0.1 10^3/uL (0-0.05); Absolute Lymphocytes 1.2 10^3/uL (1.2-3.4); Absolute Monocytes 0.7 10^3/uL (0.1-0.6); Absolute Neutrophils 6.3 10^3/uL (1.4-6.5); Hemoglobin 10.8 g/dL (12.0-16.0); Mean Corp Hgb Conc. 34.8 g/dL (33.0-37.0); Mean Corpuscular Hgb 28.3 pg (27.0-31.0); Mean Corpuscular Volume 81.4 fL (81.0-99.0); Mean Platelet Volume 9.8 fL (7.4-10.4); Nucleated Red Blood Cells % 0 %; Platelet Count 273 10^3/uL (130-400); Red Blood Cell Count 3.81 10^6/uL (4.20-5.40); Red Cell Dist. Width 13.8 % (11.5-14.5); White Blood Cell Count 8.3 10^3/uL (4.8-10.8)
[2023-09-27 07:34] LABS: Blood Urea Nitrogen 9 mg/dl (7-17); Calcium 9.1 mg/dl (8.4-10.2); Carbon Dioxide 23 mmol/L (22-30); Chloride 110 mmol/L (98-107); Estimated Creatinine Clearance 83 ml/min; Glucose 97 mg/dl (70-99); Potassium 3.4 mmol/L (3.5-5.1); Sodium 138 mmol/L (135-145); eGFR > 60.00
[2023-09-27] MEDS: VITAMIN E 400 UNITS PO (08:40)
[2023-09-27] MEDS: LEVAQUIN 500 MG PO (08:40)
[2023-09-27] MEDS: VITAMIN D3 (cholecalciferol) 25 MCG PO (08:40)
[2023-09-27] MEDS: ZESTRIL 10 MG PO (08:40)
[2023-09-27] MEDS: PROTONIX 40 MG PO (08:40)
[2023-09-27] MEDS: CLARITIN 10 MG PO (08:40)
[2023-09-27] MEDS: HEPARIN 5000 UNITS SC (08:41)
--- NOTE | 2023-09-27 11:15 | W.PN.HOSP.TC ---
Today's Communication/Plan
-
Await ID input
Assessment / Plan
Assessment / Plan
Gen-AAOx3, NAD
HEENT-NC, AT, anicteric, clear oral mm
Neck-supple
CV-reg, no M, +S1/S2
Lungs-clear B/L
Abd-soft, NT, ND
Ext-no edema
Musculoskeletal-no cyanosis, clubbing
Skin-warm and dry
Neuro-grossly non-focal
Psych-calm, cooperative
Sepsis due to acute gastroenteritis -sepsis resolved. Suspect initial positive blood culture was a contaminant. Repeat blood cultures negative. Leukocytosis resolved. Afebrile now. Stool studies negative for norovirus and C. difficile colitis,
stool culture negative.
Clinically doubt UTI as she has no symptoms despite pyuria. Urine culture shows greater than 100,000 lactobacillus species. Defer antibiotics to infectious disease.
GERD
-Continue omeprazole
Gill's esophagus
Questionable celiac disease
Hyperlipidemia
Essential hypertension
-Continue lisinopril
Full code
DVT prophylaxis heparin
Dispo - appears medically stable for discharge, will discuss with infectious disease.
Anticipated Discharge: Today
Subjective/Interval History
-
Date of Service: September 27, 2023
Patient seen and examined. Looks and feels much better today. No complaints. Ate a full breakfast. Denies further vomiting or diarrhea.
Objective Data
-
Labs:
Laboratory Results
09/27/23
06:27
WBC 8.3
Hgb 10.8 L
Hct 31.0 L
Plt Count 273
Sodium 138
Potassium 3.4 L
Chloride 110 H
Carbon Dioxide 23
BUN 9
Creatinine 0.6
Glucose 97
Calcium 9.1
Vital Signs:
Vital Signs
Temp Pulse Resp BP Pulse Ox
98.5 F 79 18 149/91 97
09/27/23 07:00 09/27/23 08:40 09/27/23 07:00 09/27/23 08:40 09/27/23 07:00
I&O
09/26/23 09/27/23 09/28/23
06:59 06:59 06:59
Intake Total 980 / 980 500 / 500
Balance 980 / 980 500 / 500
Review of Systems
-
History Source: Patient
All other systems: Reviewed and negative
--- NOTE | 2023-09-27 11:52 | CM ---
CM following for d/c planning
Pt poss d/c today
Will have ride at d/c with
Discussed IMM
Plan - anticipate home no needs
[2023-09-27] MEDS: KCL ELIXIR 40 MEQ PO (12:03)
--- NOTE | 2023-09-27 12:41 | W.PN.ID1 ---
Date of Service
Date of Service: September 27, 2023
Today's Communication
D/C abx.
Assessment / Plan
Fever / chills
Nausea / vomiting / Diarrhea
Leukocytosis
(+) BC's with GPC (1 of 4 bottles from admit)
- suspect contaminat
Suspected UTI
PCN / Sulfa allergy
Gill's esophagus
GERD
HTN
Recommendations:
Fevers resolved.
levaquin d#5.
Overall clinical improvement.
Discontinue further antibiotics.
No objection to discharge from Infectious Diseases standpoint.
Chief Complaint
-: Fever and Leukocytosis
Subjective / Review of Systems
Review of Systems: No Fever and No Chills
Vital Signs / Physical Exam
Vital Signs
Vital Signs
Temp Pulse Resp BP Pulse Ox
98.5 F 79 18 149/91 97
09/27/23 11:00 09/27/23 08:40 09/27/23 07:00 09/27/23 08:40 09/27/23 07:00
Physical Exam
Constitutional: No Acute Distress, Comfortable and Non-toxic
Eyes: Sclera Anicteric
Pulmonary: Non Labored
Gastrointestinal: Non Distended
Skin: Negative Rash or Jaundice
Neurological: Awake, Alert and Oriented
Psychological: Calm
Objective Data
Lab Data
Lab Results
09/27/23 06:27
09/27/23 06:27
ESR 54 mm/hour (0-20) H 09/26/23 08:37
Estimated Creat Clear 83 ml/min 09/27/23 06:27
Total Bilirubin 0.3 mg/dl (0.2-1.3) 09/26/23 09:52
AST 27 U/L (14-36) 09/26/23 09:52
ALT 23 U/L (0-35) 09/26/23 09:52
Alkaline Phosphatase 82 U/L (38-126) 09/26/23 09:52
C-Reactive Protein 260.40 mg/L (0.0-10.00) H 09/26/23 08:37
Most recent labs reviewed.
Micro Results:
09/24/23 11:23 Salmonella/Shigella Culture - Final
Feces/Stool No Salmonella, Shigella, Aeromonas or Plesiomonas species
isolated.
Campylobacter Culture - Final
No Campylobacter species isolated.
Shiga Toxin Test - Final
No E. coli Shiga Toxin 1 or 2 detected.
09/26/23 08:57 Blood Culture - Preliminary
Blood/Venous No Growth in 24 hours- Final report to follow
09/26/23 08:37 Blood Culture - Preliminary
Blood/Venous No Growth in 24 hours- Final report to follow
09/26/23 17:42 Blood Culture - Pending
Blood/Venous
09/23/23 16:06 Blood Culture - Preliminary
Blood/Venous No Growth in 72 hours- Final report to follow
09/24/23 15:52 Blood Culture - Preliminary
Blood/Venous No Growth in 48 hours- Final report to follow
09/23/23 16:06 Blood Culture - Final
Blood/Venous Coagulase neg. staphylococcus
Additional testing on request
Gram Stain - Final
09/24/23 11:23 C. difficile GDH Antigen & Toxins - Final
Feces/Stool Negative for toxigenic C.difficile
- Final
Negative for Norovirus GI and GII.
09/23/23 14:17 Urine Culture - Final
Urine Lactobacillus species
09/23/23 12:47 Influenza Types A & B (LYNDSAY) - Final
Nasal Swab Negative for Influenza A & B, NAAT
Negative results must be combined with clinical observations
and patient history.
Nucleic Acid Amplification test (NAAT)performed on the
[employer] platform.
Care Review
Plan reviewed with: Physician (Hospitalist)
--- NOTE | 2023-09-27 12:54 | W.DS.TRANS ---
DC Summary - Vial Gauger
-
Discharge Instructions:
Discharge Diagnosis/Procedures Sepsis, acute gastroenteritis
Diet Low Residue
Activity As tolerated
Driving Restrictions As prior to admission
Bathing Restrictions None
Instructions:
Stand-Alone Forms:
Changes to Home Medications: No
Discharge Medications:
DC Medications w/original date entered in [employer]
cholecalciferol (vitamin D3) 25 mcg (1,000 unit) tablet (Vitamin D3) 25 mcg PO DAILY Supplement 09/23/23
lisinopril 10 mg tablet 10 mg PO DAILY Blood Pressure 09/23/23
loratadine 10 mg tablet (Claritin) 10 mg PO DAILY Allergies 09/23/23
omeprazole 40 mg capsule,delayed release 40 mg PO DAILY Gastrointestinal Issue 09/23/23
vitamin E 268 mg (400 unit) capsule 268 mg PO DAILY Supplement 09/23/23
Home Medication Changes
Pending Results: No
== END 2023-09-27 14:00 | disposition home or self-care (01) | DRG 872 ==
LOC: 3 WEST ACU 17:38
PROVIDERS: Hospitalist; ADMITTING PHYSICIAN Hospitalist; ATTENDING PHYSICIAN Hospitalist; CONSULT PHYSICIAN Internal Medicine Infectious Disease; EMERGENCY PHYSICIAN Emergency Medicine; FAMILY PHYSICIAN Family Medicine
DX: A41.9 Sepsis, unspecified organism (principal); Z87.891 Personal history of nicotine dependence; K21.9 Gastro-esophageal reflux disease without esophagitis; K22.70 Barrett's esophagus without dysplasia; E78.5 Hyperlipidemia, unspecified; I10 Essential (primary) hypertension; K52.9 Noninfective gastroenteritis and colitis, unspecified; Z11.52 Encounter for screening for COVID-19
CPT/HCPCS: 80048; 80053; 80076; 81003; 81015; 83690; 83735; 85025; 85652; 86140; 87040; 87045; 87046; 87086; 87150; 87205; 87324; 87427; 87449; 87502; 87798; 87811; 96361; 96374; 99285

== ENCOUNTER 2023-10-21 10:42 | Outpatient (RCR) | payer MEDICARE, SELFPAY | END 2023-10-21 23:59 | disposition home or self-care (01) | LOC: RPT 10:42 | PROVIDERS: ATTENDING PHYSICIAN Internal Medicine Gastroenterology; PRIMARYCARE PHYSICIAN Family Medicine | DX: R15.9 Full incontinence of feces (principal); M62.89 Other specified disorders of muscle; N39.41 Urge incontinence; N39.3 Stress incontinence (female) (male); Z73.6 Limitation of activities due to disability; M62.81 Muscle weakness (generalized); R27.8 Other lack of coordination | CPT/HCPCS: 97140; 97530 ==

== ENCOUNTER 2023-12-20 09:55 | Outpatient (RCR) | payer MEDICARE, SELFPAY | END 2023-12-20 23:59 | disposition home or self-care (01) | LOC: RPT 09:55 | PROVIDERS: ATTENDING PHYSICIAN Internal Medicine Gastroenterology; PRIMARYCARE PHYSICIAN Family Medicine | DX: R15.9 Full incontinence of feces (principal); M62.89 Other specified disorders of muscle; N39.46 Mixed incontinence; N39.41 Urge incontinence; N39.3 Stress incontinence (female) (male); Z73.6 Limitation of activities due to disability; M62.81 Muscle weakness (generalized); R27.8 Other lack of coordination | CPT/HCPCS: 97014; 97110; 97112; 97140; 97530 ==

== ENCOUNTER 2024-01-17 10:09 | Outpatient (RCR) | payer MEDICARE, SELFPAY | END 2024-01-17 23:59 | disposition home or self-care (01) | LOC: RPT 10:09 | PROVIDERS: ATTENDING PHYSICIAN Internal Medicine Gastroenterology; PRIMARYCARE PHYSICIAN Family Medicine | DX: R15.9 Full incontinence of feces (principal); N39.46 Mixed incontinence; M62.89 Other specified disorders of muscle; Z73.6 Limitation of activities due to disability; M62.81 Muscle weakness (generalized); R27.8 Other lack of coordination; N39.41 Urge incontinence; N39.3 Stress incontinence (female) (male) | CPT/HCPCS: 97014; 97112; 97530 ==

== ENCOUNTER 2024-03-13 09:59 | Outpatient (RCR) | payer MEDICARE, SELFPAY | END 2024-03-13 12:03 | disposition home or self-care (01) | LOC: RPT 09:59 | PROVIDERS: ATTENDING PHYSICIAN Internal Medicine Gastroenterology; PRIMARYCARE PHYSICIAN Family Medicine | DX: R15.9 Full incontinence of feces (principal); N39.46 Mixed incontinence; M62.89 Other specified disorders of muscle; Z73.6 Limitation of activities due to disability; R27.8 Other lack of coordination; M62.81 Muscle weakness (generalized); N39.41 Urge incontinence; N39.3 Stress incontinence (female) (male) | CPT/HCPCS: 97530 ==

== ENCOUNTER → 2024-07-31 11:51 | Outpatient (REF) | payer MEDICARE, SELFPAY | LOC: WDC 11:51 | PROVIDERS: ATTENDING PHYSICIAN Family Medicine | DX: Z12.31 Encounter for screening mammogram for malignant neoplasm of breast (principal) | CPT/HCPCS: 77063; 77067 ==